=== PATIENT | female | born 1950 | race Caucasian/White ===

== ENCOUNTER 2023-11-20 07:19 | Emergency (ER) | payer MEDICARE ==
--- NOTE | 2023-11-20 07:56 | ED Physician Documentation ---
PD HPI GI BLEED - Stated complaint Stated Complaint: GI BLEED - Chief complaint Chief Complaint: Abd Pain - History obtained from History obtained from: Patient - History of Present Illness Timing - onset: Today Timing - details: Abrupt onset, Still present (she had BM with red/purple blood with clots following some stool, then another movement shortly after with clots again. Estimated about a cup total of blood.) Associated symptoms: Maroon stool. No: Black/tarry stool, Diarrhea Contributing factors: Other (plavix). No: Sick contact, Bad food Similar symptoms before: No diagnosis (has brief GI bleedings in the past, with subsequent normal colonscopies and EGD. Presumed brief diverticular bleeds in the past.) Review of Systems Constitutional: denies: Fever, Chills Nose: denies: Rhinorrhea / runny nose, Congestion Throat: denies: Sore throat Respiratory: denies: Cough GI: reports: Bloody / black stool. denies: Abdominal Pain, Vomiting, Constipation, Diarrhea PD PAST MEDICAL HISTORY - Past Medical History Cardiovascular: Hypertension, High cholesterol GI: GI bleed, Diverticulitis Other Past Medical History: bilateral leg stents - Allergies Allergies/Adverse Reactions: Allergies Allergy/AdvReac Type Severity Reaction Status Date / Time ibuprofen Allergy Hives Verified 11/20/23 07:33 Penicillins Allergy Hives Verified 11/20/23 07:33 - Social History Does the pt smoke?: No Smoking Status: Never smoker Does the pt drink ETOH?: Yes ETOH Use: Beer Does the pt have substance abuse?: No - Immunizations Immunizations are current?: Yes - POLST Patient has POLST: No PD ED PE NORMAL - Vitals Vital signs reviewed: Yes - General General: Alert and oriented X 3, No acute distress, Well developed/nourished - Cardiac Cardiac: RRR, No murmur - Respiratory Respiratory: No respiratory distress, Clear bilaterally - Abdomen Abdomen: Normal bowel sounds, Soft, Non tender, Non distended, No organomegaly - Rectal Rectal: Deferred - Derm Derm: Normal color, Warm and dry Results - Vitals Vitals: Oxygen O2 Source Room air - Labs Labs: Laboratory Tests 11/20/23 11/20/23 11/20/23 08:01 08:01 08:34 WBC 8.5 RBC 4.13 L Hgb 12.1 Hct 38.5 MCV 93.2 MCH 29.3 MCHC 31.4 L RDW 12.8 Plt Count 244 MPV 11.0 H Neut # (Auto) 6.5 Lymph # (Auto) 1.1 L [place] # (Auto) 0.7 Eos # (Auto) 0.1 Baso # (Auto) 0.0 Absolute Nucleated RBC 0.00 Nucleated RBC % 0.0 Sodium 137 Potassium 3.9 Chloride 104 Carbon Dioxide 27 Anion Gap 6.0 BUN 17 Creatinine 0.6 Estimated GFR (MDRD) 98 Glucose 99 Calcium 9.5 Total Bilirubin 0.6 AST 16 ALT 12 Alkaline Phosphatase 75 Total Protein 6.9 Albumin 3.9 Globulin 3.0 Albumin/Globulin Ratio 1.3 Lipase 31 Urine Color YELLOW Urine Clarity HAZY Urine pH 7.0 Ur Specific [place] 1.010 Urine Protein NEGATIVE Urine Glucose (UA) NEGATIVE Urine Ketones NEGATIVE Urine Occult Blood TRACE-INTA Urine Nitrite NEGATIVE Urine Bilirubin NEGATIVE Urine Urobilinogen 0.2 (NORMAL) Ur Leukocyte Esterase TRACE H Urine RBC 0-5 Urine WBC 0-3 Ur Squamous Epith Cells MOD Squamous H Urine Bacteria Rare Ur Microscopic Review INDICATED Urine Culture Comments NOT INDICATED 11/20/23 10:49 WBC RBC Hgb 11.5 L Hct 36.7 L MCV MCH MCHC RDW Plt Count MPV Neut # (Auto) Lymph # (Auto) [place] # (Auto) Eos # (Auto) Baso # (Auto) Absolute Nucleated RBC Nucleated RBC % Sodium Potassium Chloride Carbon Dioxide Anion Gap BUN Creatinine Estimated GFR (MDRD) Glucose Calcium Total Bilirubin AST ALT Alkaline Phosphatase Total Protein Albumin Globulin Albumin/Globulin Ratio Lipase Urine Color Urine Clarity Urine pH Ur Specific [place] Urine Protein Urine Glucose (UA) Urine Ketones Urine Occult Blood Urine Nitrite Urine Bilirubin Urine Urobilinogen Ur Leukocyte Esterase Urine RBC Urine WBC Ur Squamous Epith Cells Urine Bacteria Ur Microscopic Review Urine Culture Comments - Rads (name of study) abd/pelvic CT Relevant Findings:: Prelim report reviewed (diverticulosis without diverticulitis. Adrenal cyst 1.5 cm with f/u recommended. ), EMP independent interpretation of test PD Medical Decision Making - ED course Complexity details: reviewed results (repeat Hgb is slightly lower from 12.1 to 11.6. Reasonably c/w dilutional effect of liter of fluid. She has not had further rectal output while here. Appears to be stopped bleeding at this time. ), considered differential (purple to red blood with clots c/w lower colonic GI bleeding. No abd pain nor tenderness, but got CT to eval for mass/diverticultitis, etc. This did not have acute findings. ), d/w patient Departure - Departure Disposition: 01 Home, Self Care Clinical Impression: Lower GI bleeding, Adrenal nodule, Diverticulosis Condition: Stable Record reviewed to determine appropriate education?: Yes Instructions: ED Hematochezia Stable Comments: Your blood count was good at 12.1 with a repeat 11.5. This is natural for her to drop a little bit like that as the blood and fluid equalized within your system. You are not having signs of ongoing bleeding with output rectally at this time. See how you do through the day and tomorrow. There may be some residual blood still within the lower colon that will come out but it should not be a large volume. I would hold your Plavix today and tomorrow. I would hold your losartan today and if you are feeling a little lightheaded then hold it tomorrow as well. Continue with your carvedilol and nifedipine and other medicines. Stay well-hydrated. Try to minimize or avoid poorly digested foods such as nuts, popcorn, stringy lettuce or kale or similar things. The intention being if you have a irritated spot in the lower colon that you want to not have food that is still firm to rub or irritate on its way by during the healing phase. If you are feeling better over the next couple of days and no noticeable further bleeding and no belly pain or fevers or vomiting etc. then just follow-up with your primary care at home. Most common causes for episodes like this can be brief irritation of a diverticulum or polyp or such. Commonly the bleeding will be self-limited and stop. We did do a CT scan and there is no signs of obvious diverticulitis, tumors or masses, perforations. Incidentally noted was a small cyst on your adrenal gland that suggested follow-up at some point in the future. This may be a known process for you or your provider and if it has been present in the past then no further workup is needed. Return if lightheaded, increased bleeding, belly pain consistently or fevers or vomiting. Forms: PCP List Discharge Date/Time: 11/20/23 12:40
[2023-11-20 08:13] LABS: BASOPHILS % (AUTO) 0.2 %; EOSINOPHILS # (AUTO) 0.1 10^3/uL (0.0-0.7); EOSINOPHILS % (AUTO) 1.6 %; HCT - HEMATOCRIT 38.5 % (37.0-47.0); HGB - HEMOGLOBIN 12.1 g/dL (12.0-16.0); LYMPHOCYTES # (AUTO) 1.1 10^3/uL (1.5-3.5); LYMPHOCYTES % (AUTO) 13.4 %; MEAN CORPUSCULAR HEMOGLOBIN 29.3 pg (27.0-31.0); MEAN CORPUSCULAR HGB CONC 31.4 g/dL (32.0-36.0); MEAN CORPUSCULAR VOLUME 93.2 fL (81.0-99.0); MONOCYTES # (AUTO) 0.7 10^3/uL (0.0-1.0); MONOCYTES % (AUTO) 8.2 %; NEUTROPHILS # (AUTO) 6.5 10^3/uL (1.5-6.6); NEUTROPHILS % (AUTO) 76.1 %; PLT - PLATELET COUNT 244 10^3/uL (130-450); RED BLOOD COUNT 4.13 10^6/uL (4.20-5.40); RED CELL DISTRIBUTION WIDTH 12.8 % (12.0-15.0); WHITE BLOOD COUNT 8.5 x10^3/uL (4.8-10.8)
[2023-11-20 08:27] LABS: ALBUMIN 3.9 g/dL (3.2-5.5); ALBUMIN/GLOBULIN RATIO 1.3 (1.0-2.2); BILIRUBIN,TOTAL 0.6 mg/dL (0.2-1.0); CALCIUM 9.5 mg/dL (8.5-10.3); CREATININE 0.6 mg/dL (0.6-1.3); POTASSIUM 3.9 mmol/L (3.5-4.5); TOTAL PROTEIN 6.9 g/dL (6.4-8.9)
[2023-11-20 08:45] LABS: BILIRUBIN,URINE NEGATIVE (NEGATIVE); CLARITY,URINE HAZY (CLEAR); GLUCOSE, URINE (UA) NEGATIVE (NEGATIVE); KETONES,URINE (UA) NEGATIVE (NEGATIVE); LEUKOCYTE ESTERASE, URINE TRACE (NEGATIVE); NITRITE,URINE NEGATIVE (NEGATIVE); OCCULT BLOOD,URINE TRACE-INTA (NEGATIVE); PROTEIN,URINE NEGATIVE (NEGATIVE); UROBILINOGEN,URINE 0.2 (NORMAL) E.U./dL (NORMAL)
[2023-11-20 08:53] LABS: BACTERIA,URINE Rare /HPF (None Seen); RBC,URINE 0-5 /HPF (0-5); SQUAMOUS EPITHELIAL CELL,UR MOD Squamous (<= Few); WBC,URINE 0-3 /HPF (0-5)
[2023-11-20] MEDS ORDERED: iohexoL-300 100 ML VIAL ONE (10:02)
[2023-11-20] MEDS: iohexoL-300 100 ML VIAL IVP ONE (10:28)
[2023-11-20 10:53] LABS: HCT - HEMATOCRIT 36.7 % (37.0-47.0); HGB - HEMOGLOBIN 11.5 g/dL (12.0-16.0)
--- NOTE | 2023-11-20 10:55 | CT Report ---
PROCEDURE: Abdomen/Pelvis W INDICATIONS: lower GI bleeding this AM CONTRAST: 100ml omni 300 TECHNIQUE: After the administration of intravenous contrast, a CT scan of the abdomen and pelvis was performed. Images were recorded and evaluated at appropriate window settings. Reformats: coronal and sagittal. F or radiation dose reduction, the following was used: automated exposure control, adjustment of mA and /or kV according to patient size. COMPARISON: None. FINDINGS: Image quality: Diagnostic. Lower chest: Unremarkable. Liver: No solid mass. Gallbladder and biliary tree: No radiopaque stones or wall thickening. No biliary dilation. Spleen: No splenomegaly. Pancreas: No pancreatic ductal dilation. Adrenals: Indeterminate right adrenal nodule measuring 1.5 cm. Kidneys and ureters: No hydronephrosis. No renal cystic lesion which requires follow up. No solid mas s. Stomach, bowel and peritoneum: No bowel distension. No pathologic free fluid. Diverticulosis without evidence of diverticulitis. Normal appendix. Lymph nodes: No central or retroperitoneal adenopathy. Vessels: No infrarenal aortic aneurysm. Significant vascular calcifications. Stent extending from the left common iliac vein into the IVC. PELVIS Reproductive organs: Unremarkable. Bladder: No abnormal wall thickening, accounting for underdistention. Pelvic lymph nodes: No pelvic adenopathy by size criteria. Bones: No aggressive osseous abnormality. Degenerative changes of the spine, most pronounced at L3-L4 . Other: No significant ventral or inguinal hernia. IMPRESSION: 1.No acute findings within the abdomen or pelvis. 2.Diverticulosis without evidence of acute diverticulitis. 3.Indeterminate right adrenal nodule measuring 1.5 cm. Recommend nonurgent adrenal protocol CT or MRI for further evaluation. Reviewed by: Ludwin Foster MD on 11/20/2023 10:54 AM PDT Approved by: Ludwin Foster MD on 11/20/2023 10:54 AM PDT Station ID: [id number]
[2023-11-20 11:05] VITALS: O2SAT 100
[2023-11-20 13:02] VITALS: BP 130/80
== END 2023-11-20 12:40 | disposition home or self-care (01) ==
LOC: ED 07:19
DX: K57.90 Diverticulosis of intestine, part unspecified, without perforation or abscess without bleeding (principal); E27.9 Disorder of adrenal gland, unspecified; I10 Essential (primary) hypertension
CPT/HCPCS: 36415; 74177; 80053; 81001; 83690; 85014; 85018; 85025; 99284; Q9967; 81003; 87086; 87338